=== PATIENT | male | born 1940 | race Caucasian/White ===

== ENCOUNTER 2018-04-08 15:14 | Outpatient (REF) | payer MEDICARE, BC, SELFPAY ==
[2018-04-08 20:43] LABS: Abs Immature Grans 0.01 k/cumm (0.0-0.09); Absolute Basophil Count 0.04 k/cumm (0.0-0.2); Absolute Lymphocyte Count 0.79 k/cumm (1.2-3.4); Absolute Monocyte Count 0.41 k/cumm (0.11-0.7); Absolute Neutrophil Count 2.09 k/cumm (1.2-6.7); Basophils % 0.9; Eosinophils % 21.2; HGB 10.3 g/dL (13.5-17.5); Immature Grans % 0.2; Lymphocytes % 18.6; Mean Corp. HGB Concentration 32.2 g/dL (32.0-36.0); Mean Corpuscular Volume 111.9 fL (80-95); Mean Platelet Volume 10.6 fL (8.0-11.0); Monocytes % 9.7; Neutrophils % 49.4; Platelet Count 227 x1000/uL (130-400); RBC 2.86 m/cumm (4.50-6.00); RBC Distribution Width 14.5 % (11.8-14.1); White Blood Cell Count 4.24 k/cumm (4.4-10.8)
[2018-04-08 20:55] LABS: ALT 33 U/L (12-78); AST 37 U/L (15-37); Albumin 3.6 g/dL (3.4-5.0); Alkaline Phosphatase 64 U/L (46-116); Amylase 129 U/L (25-115); Anion Gap 9.3 mmol/L (3-11); BUN 68 mg/dL (7-18); Bilirubin, Total 0.3 mg/dL (0.2-1.0); CO2 23.7 mmol/L (21.0-32.0); CREATININE 3.15 mg/dL (0.70-1.30); Calcium 8.7 mg/dL (8.5-10.1); Chloride 103 mmol/L (98-107); Estimated GFR 19.38 (mL/min/1.73m2); Glucose 96 mg/dL (70-100); Lipase 295 U/L (73-393); Potassium 5.7 mmol/L (3.5-5.1); Sodium 136 mmol/L (136-145); Total Protein 7.4 g/dL (6.4-8.2)
[2018-04-08 21:08] LABS: Macrocytosis 3+; Polychromasia Present
== END 2018-04-08 15:15 ==
LOC: NCHCN 15:14
PROVIDERS: PCP Registered Nurse; Visit Provider Family Medicine
DX: R10.9 Unspecified abdominal pain (principal); K44.9 Diaphragmatic hernia without obstruction or gangrene
CPT/HCPCS: 80053; 83690; 82150; 85025

== ENCOUNTER 2019-04-07 22:50 | Outpatient (REF) | payer MEDICARE, BC, SELFPAY ==
[2019-04-07 21:59] LABS: Anion Gap 12.4 mmol/L (3-11); BUN 68 mg/dL (7-18); CO2 24.6 mmol/L (21.0-32.0); Calcium 8.8 mg/dL (8.5-10.1); Chloride 106 mmol/L (98-107); Estimated GFR 15.47 (mL/min/1.73m2); Glucose 137 mg/dL (70-100); Potassium 4.2 mmol/L (3.5-5.1); Sodium 143 mmol/L (136-145)
[2019-04-07 22:26] LABS: CREATININE 3.82 mg/dL (0.70-1.30)
== END 2019-04-07 23:10 ==
LOC: LBN 22:50
PROVIDERS: Nurse Practitioner Family; PCP Registered Nurse; Visit Provider Internal Medicine Nephrology
DX: D46.9 Myelodysplastic syndrome, unspecified (principal); D64.9 Anemia, unspecified; N18.4 Chronic kidney disease, stage 4 (severe); E83.52 Hypercalcemia
CPT/HCPCS: 80048

== ENCOUNTER 2019-04-10 12:48 | Outpatient (REF) | payer MEDICARE, BC, SELFPAY ==
[2019-04-10 22:16] LABS: Anion Gap 10.2 mmol/L (3-11); BUN 58 mg/dL (7-18); CO2 24.8 mmol/L (21.0-32.0); CREATININE 3.26 mg/dL (0.70-1.30); Calcium 8.8 mg/dL (8.5-10.1); Chloride 104 mmol/L (98-107); Estimated GFR 18.58 (mL/min/1.73m2); Glucose 48 mg/dL (70-100); Potassium 5.8 mmol/L (3.5-5.1); Sodium 139 mmol/L (136-145)
== END 2019-04-10 13:08 ==
LOC: NCHCN 12:48
PROVIDERS: PCP Registered Nurse; Visit Provider Nurse Practitioner Family
DX: N18.5 Chronic kidney disease, stage 5 (principal)
CPT/HCPCS: 80048

== ENCOUNTER 2019-04-14 21:01 | Outpatient (REF) | payer MEDICARE, BC, SELFPAY ==
[2019-04-14 21:19] LABS: Anion Gap 12.7 mmol/L (3-11); BUN 44 mg/dL (7-18); CO2 24.3 mmol/L (21.0-32.0); CREATININE 2.52 mg/dL (0.70-1.30); Calcium 7.8 mg/dL (8.5-10.1); Chloride 104 mmol/L (98-107); Glucose 145 mg/dL (70-100); Potassium 3.7 mmol/L (3.5-5.1); Sodium 141 mmol/L (136-145)
== END 2019-04-14 21:21 ==
LOC: NCHCN 21:01
PROVIDERS: PCP Registered Nurse; Visit Provider Nurse Practitioner Family
DX: N18.4 Chronic kidney disease, stage 4 (severe) (principal); E83.52 Hypercalcemia
CPT/HCPCS: 80048

== ENCOUNTER 2019-04-18 21:10 | Outpatient (REF) | payer MEDICARE, BC, SELFPAY ==
[2019-04-18 21:35] LABS: Anion Gap 11.7 mmol/L (3-11); BUN 55 mg/dL (7-18); CO2 25.3 mmol/L (21.0-32.0); CREATININE 2.59 mg/dL (0.70-1.30); Calcium 7.9 mg/dL (8.5-10.1); Chloride 103 mmol/L (98-107); Estimated GFR 24.23 (mL/min/1.73m2); Glucose 82 mg/dL (70-100); Potassium 3.7 mmol/L (3.5-5.1); Sodium 140 mmol/L (136-145)
== END 2019-04-18 21:30 ==
LOC: NCHCN 21:10
PROVIDERS: PCP Registered Nurse; Visit Provider Nurse Practitioner Family
DX: N18.4 Chronic kidney disease, stage 4 (severe) (principal); E83.52 Hypercalcemia; I50.22 Chronic systolic (congestive) heart failure
CPT/HCPCS: 80048

== ENCOUNTER 2019-06-06 21:44 | Outpatient (REF) | payer MEDICARE, BC, SELFPAY ==
[2019-06-06 21:33] LABS: Anion Gap 6.8 mmol/L (3-11); BUN 55 mg/dL (7-18); CO2 30.2 mmol/L (21.0-32.0); Calcium 8.6 mg/dL (8.5-10.1); Chloride 102 mmol/L (98-107); Estimated GFR 22.14 (mL/min/1.73m2); Glucose 79 mg/dL (70-100); Potassium 4.4 mmol/L (3.5-5.1); Sodium 139 mmol/L (136-145)
== END 2019-06-06 22:04 ==
LOC: NCHCN 21:44
PROVIDERS: PCP Registered Nurse; Visit Provider Family Medicine
DX: I11.0 Hypertensive heart disease with heart failure (principal); I50.23 Acute on chronic systolic (congestive) heart failure
CPT/HCPCS: 80048; 83880